=== PATIENT | female | born 1965 | race Caucasian/White ===

== ENCOUNTER → 2021-09-10 | Outpatient (CLI) | payer OTHER, SELFPAY ==
--- NOTE | 2021-09-10 | ASPIG_PTH ---
PATIENT: DC TOLLIVER LOC: [facility][id number] AGE/SX: 56/F ROOM: RE09/10/[address]: Dr. Devang Harman MD : 1965 BED: DIS: 09/10/2021 SPEC #: [id number] RECD: 09/10/21 16:42 STATUS: TOLU BLAYNE #: [id number] CHARLETTE: 09/10/21 00:[address]: Devang Harman DEPT: CYTOLOGY RECD BY: Anderson Davenport ENTERED: 09/13/21 06:42 SP TYPE: ASP OUT OTHR DR: No Primary Care Phys Tissues: A - Thyroid gland, NOS B - Thyroid gland, NOS Procedures: FNA Specimen Adequacy Special Stain Group II Surgery Specimen Level IV Cytology Other HEADER OPERATION: Right thyroid, fine needle aspiration PRE-OP DIAGNOSIS: Uninodular goiter TISSUE SUBMITTED: A ? Right thyroid nodule fluid, B ? Right thyroid nodule x12 slides DIAGNOSIS CYTOLOGY A. Right thyroid nodule fluid, fine needle aspiration (cytospin and cell block): Negative for malignant cells. See comment. B. Right thyroid nodule, fine needle aspiration (smears): Consistent with benign follicular/colloid nodule with cystic changes (Concord category II). Adequate for evaluation. See comment. ELENITA:ernestina 09/14/2021 COMMENT A. The specimen shows a few clusters of benign follicular cells and macrophages. Clinical correlation and appropriate follow up are necessary. CYTOLOGY STUDY Slides are reviewed. CYTOLOGY GROSS A - Received is 25 ml of light beige cloudy fluid labeled with the patient's name and and designated per the requisition as right thyroid. Submitted for cytology preparation including cell block. B - Received are 12 smears labeled with the patient's name and designated per the requisition as right thyroid. Submitted for staining. / ernestina 09/13/2021 TC:5 CPT: 55396, 34613 x2
== END | disposition home or self-care (01) ==
PROVIDERS: Visit Provider Surgery
DX: E04.1 Nontoxic single thyroid nodule (principal)
CPT/HCPCS: 88161; 88172; 88305; 88313

== ENCOUNTER 2022-06-24 01:23 | Emergency (ER) | payer OTHER, SELFPAY ==
[2022-06-24 01:24] VITALS: BP 175/104; PULSE 124; RESP 18; TEMP 36.7; O2SAT 99; BMI 32.1
--- NOTE | 2022-06-24 01:51 | RAD_ITS ---
STUDY: X-RAY CHEST REASON FOR EXAM: Female, 57 years old. Chest pain. TECHNIQUE: PA and lateral COMPARISON: None. FINDINGS: No apparent pneumothorax, pneumonia, pleural effusion, or edema. Cardiac silhouette, umer and mediastinal contours are within normal limits. No acute osseous abnormality. No evidence of free air under the diaphragm. RAD/Chest PA and Lateral IMPRESSION: Negative chest radiograph. Electronically Signed: Shashank Rivas MD at 2:39 EDT ,
[2022-06-24] MEDS: Aspirin 325 MG Tablet PO (01:58)
[2022-06-24 02:05] LABS: Absolute Lymphocyte Count 3.88 X10^3/uL (0.83-4.51); Absolute Neutrophil Count 4.8 X10^3/uL (2.0-7.7); Basophil# 0.13 X10^3/uL; Basophil% 1.3 % (0-1); Eosinophil# 0.24 X10^3/uL; Eosinophils% 2.4 % (0-5); Hematocrit 42.8 % (37-47); Hemoglobin 14.2 g/dL (12.0-15.0); Lymphocyte # 3.88 X10^3/ul (0.83-4.51); Mean Corp Hgb Conc 33.2 g/dL (32-36); Mean Corpuscular Hgb 29.7 pg (27.0-32.0); Mean Corpuscular Volume 89.5 fL (81-99); Mean Platelet Vol. 10.3 fl (6.2-12.0); NRBC Flagged by Analyzer 0 % (0-5); Neutrophil # 4.84 X10^3/uL (2.7-7.7); Neutrophil % 48.7 % (47-70); Platelet Count 357 K/mm3 (150-450); RBC Distribution Width SD 42.1 fl (35.1-43.9); Red Blood Count 4.78 M/mm3 (4.2-5.4)
[2022-06-24 02:23] LABS: D-Dimer Quantitative (DVT/PE) 0.68 FEU/ug/m (0.27-0.49)
[2022-06-24 02:29] LABS: Anion Gap 5 (5-15); BUN 21 mg/dL (7-18); BUN/Creat Ratio 20.4 RATIO (10-20); Calcium,Total 9.4 mg/dL (8.5-10.1); Chloride 109 mmol/L (98-107); Creatinine, Serum 1.03 mg/dL (0.55-1.02); EST Glomerular Filtration Rate 59 mL/min (>60); Est Glom Filt Rate - Afr Amer 71 mL/min (>60); Estimated Creatinine Clearance 55.53 ml/min; Glucose 79 mg/dL (74-106); Magnesium 2.1 mg/dL (1.6-2.6); Potassium 3.8 mmol/L (3.5-5.1); Sodium Level 140 mmol/L (136-145); Thyroid Stim Hormone (TSH) 8.26 uIU/mL (0.358-3.74); Troponin-I HS 6 pg/mL (3.0-54.0)
--- NOTE | 2022-06-24 02:39 | CT_ITS ---
STUDY: CTA CHEST REASON FOR EXAM: Female, 57 years old. Chest pain. Elevated d-dimer. RADIATION DOSAGE (If Supplied By Facility): CTDIvol = ( 12.18 ) mGy, DLP = ( 473.19 ) mGycm TECHNIQUE: The examination was performed with the intravenous administration of IV 100mL Isovue-370. Post-processing of the angiographic images was performed, with MIP reconstructed images. Individualized dose optimization techniques were used for this CT. COMPARISON: Chest radiographs same date. FINDINGS: Pulmonary arteries: No pulmonary embolus. Normal caliber. Heart: Normal size. No coronary artery calcifications, patency not well evaluated because of cardiac motion. Aorta: No thoracic aortic dissection or aneurysm. Lungs, pleura: No pneumonia, edema, or acute abnormality in the lungs. No pleural effusion. No pneumothorax. Mediastinum: No adenopathy or mass or hematoma. Osseous:No acute osseous abnormality. Chest wall: No concerning findings. Upper abdomen: No acute findings. CT/CTA Chest W/WO Contrast IMPRESSION: Normal CTA chest. Electronically Signed: Shashank Rivas MD at 4:00 EDT Reading Location ID and State: [facility] / [place] Tel , Service support ,
[2022-06-24 03:27] VITALS: BP 130/81; PULSE 81; RESP 18; O2SAT 95
[2022-06-24] MEDS: 0.9% Normal Saline 1,000 ML 999 ML IV (03:27)
--- NOTE | 2022-06-24 03:46 | EDS_ITS ---
HPI History of Present Illness Chief Complaint: Chest Pain Narrative Narrative: Patient is a 57-year-old female with past medical history of hypertension and hyperlipidemia who states she has been under a great deal of stress recently. She states she was able to go to sleep tonight but then awoke with some midsternal chest discomfort. She states there was no nausea vomiting diaphoresis or shortness of breath. She states that she was concerned this could be cardiac because of the sudden onset and location of the pain with this comes in for evaluation. Patient denies any recent travel surgery or history of DVT/PE. She denies any recent trauma. She denies any previous issues of cardiac disease. She also reports that there was no palpitations associated with the pain. She reports that upon arrival to the ER pain has spontaneously resolved PFSH PFSH Medical History no medical history Allergy/AdvReac Type Severity Reaction Status Date / Time erythromycin base Allergy Rash Verified 06/24/22 01:27 Penicillins Allergy Rash Verified 06/24/22 01:27 tetracycline Allergy Rash Verified 06/24/22 01:27 Social History Smoking Status: Never smoker [facility] [place] ED Constitutional Constitutional ED: Denies chills or fever(s) ENT ENT ED: Denies sore throat Cardiovascular Cardiovascular: Reports chest pain; Denies palpitations or racing heartbeat Respiratory/Chest Respiratory/Chest: Denies cough or dyspnea Gastrointestinal Gastrointestinal: Denies abdominal pain, diarrhea, nausea or vomiting Genitourinary Genitourinary ED: Denies dysuria Musculoskeletal Musculoskeletal: Denies back pain or myalgias Integumentary Denies rash Neurologic Neurologic: Denies headache(s) Psychiatric Psychiatric: Reports anxiety; Denies suicidal ideation or suicidal thoughts Hematologic/Lymphatic Hematologic/Lymphatic: Denies easy bleeding or easy bruising EXAM Physical Exam Const Vital Signs: 06/24/22 01:24 06/24/22 03:27 Temperature 98.0 F Temperature Source Temporal Pulse Rate 124 H 81 Respiratory Rate 18 18 Blood Pressure 175/104 H 130/81 H Blood Pressure Mean 127 97 Pulse Ox 99 95 Oxygen Delivery Method Room Air Room Air Positive well nourished, well developed and obese General Appearance ED: well developed Nutritional Appearance: obese HEENT Reports moist mucous membranes Eyes PERRL and EOMs intact bilaterally Neck supple and no JVD Chest Wall palpation of chest normal Resp normal respiratory effort and clear to auscultation bilaterally Cardio regular rhythm Rate: tachycardic and other Other Details: Slightly tachycardic rate with regular rhythm. Radial pulses are plus 2 out of 4 bilaterally are equal and symmetric. Carotid pulses equal and symmetric as well GI normal to inspection, nondistended, normoactive bowel sounds, non-tender, non- distended and no masses GI Narrative: No voluntary guarding or rigidity no pulsatile mass Auscultation: normoactive bowel sounds Palpation: soft Extremity normal to inspection Extremity Narrative: No asymmetric edema no pitting edema negative Homans' sign bilaterally Neuro oriented x3 and CN's II-XII intact bilaterally Sensorium / Orientation: alert Psych Psych Narrative: Patient has a nervous/anxious affect Skin no rashes or lesions noted MDM MDM MDM Narrative Medical decision making narrative: Patient presented to the ER mildly tachycardic and hypertensive but had spontaneous resolution of her chest pain. Patient's presentation for chest pain is atypical for cardiovascular disease and her risk factors are minimal and the fact that she has only hypertension and hyperlipidemia. However based on her tachycardia and hypertension I did elect to perform a basic cardiac work-up looking for endorgan damage or possible DVT/PE. The patient's initial troponin is normal at 6 and delta showed no variation going against acute coronary disease. The D-dimer was slightly elevated at 0.68 and therefore a CTA was added. CTA revealed no PE lung pathology or dissection. On reevaluation patient's had spontaneous improvement of her blood pressure and heart. Her chest discomfort is still resolved. Therefore at this time his CTA reveals no PE or dissection or lung pathology such as pneumonia or pneumothorax and blood work shows no changes to suggest endorgan damage or acute coronary syndrome I do not feel she needs to be kept in the hospital for further evaluation and she can follow-up on an outpatient basis History & Record Review Discussion w/independent historian: Patient and Family Lab Data Attestation: I reviewed the patient's lab results. Labs: Laboratory Results - last 24 hr 06/24/22 06/24/22 06/24/22 01:30 01:30 01:30 WBC 10.0 RBC 4.78 Hgb 14.2 Hct 42.8 MCV 89.5 MCH 29.7 MCHC 33.2 RDW Std Deviation 42.1 RDW Coeff of Leona 13.0 Plt Count 357 MPV 10.3 Immature Gran % (Auto) 0.600 Neut % (Auto) 48.7 Lymph % (Auto) 39.0 Catahoula % (Auto) 8.0 Eos % (Auto) 2.4 Baso % (Auto) 1.3 H Absolute Neuts (auto) 4.8 Absolute Lymphs (auto) 3.88 Nucleated RBC % 0 D-Dimer Quant (PE/DVT) 0.68 H* Sodium 140 Potassium 3.8 Chloride 109 H Carbon Dioxide 26.0 Anion Gap 5 BUN 21 H Creatinine 1.03 H Estim Creat Clear Calc 55.53 Est GFR (MDRD) Af Amer 71 Est GFR (MDRD) Non-Af 59 L BUN/Creatinine Ratio 20.4 H Glucose 79 Calcium 9.4 Magnesium 2.1 Troponin I High Sens 6 TSH 8.26 H 06/24/22 01:30 WBC RBC Hgb Hct MCV MCH MCHC RDW Std Deviation RDW Coeff of Leona Plt Count MPV Immature Gran % (Auto) Neut % (Auto) Lymph % (Auto) Catahoula % (Auto) Eos % (Auto) Baso % (Auto) Absolute Neuts (auto) Absolute Lymphs (auto) Nucleated RBC % D-Dimer Quant (PE/DVT) Sodium Potassium Chloride Carbon Dioxide Anion Gap BUN Creatinine Estim Creat Clear Calc Est GFR (MDRD) Af Amer Est GFR (MDRD) Non-Af BUN/Creatinine Ratio Glucose Calcium Magnesium Troponin I High Sens 5 TSH Radiography Diagnostic Testing: Clinical Impression(s) from Imaging Studies Chest X-Ray 06/24/22 01:51 IMPRESSION: Negative chest radiograph. Electronically Signed: Shashank Rivas MD at 2:39 EDT Reading Location ID and State: [address] [place] [address] Tel , Service support , Chest CTA 06/24/22 02:39 IMPRESSION: Normal CTA chest. Electronically Signed: Shashank Rivas MD at 4:00 EDT Reading Location ID and State: [address] [place] [address] Tel , Service support , Chest x-ray as interpreted by the emergency medicine physician reveals no acute infiltrate pneumothorax or pleural effusion Discharge Plan Triage Chief Complaint: Chest Pain ED Provider: Andrew Elias Dx/Rx/DC Orders Clinical Impression: Accelerated hypertension, Acute nonspecific chest pain with low risk of coronary artery disease Instructions: ED Chest Pain, Uncertain Cause, ED Hypertension, Established Primary Care Provider: Frances Ivey Referrals: Frances Ivey, LYNETTE [Primary Care Provider] - Activity Restrictions/Additional Instructions: Your work-up today shows no signs of cardiac damage from your EKG or blood work. There is no signs of kidney damage from your hypertension. Your CAT scan reveals no blood clot. Continue all of your medications as previously directed by your family doctor and return to the ER should you have any further concerns. Your blood work did show that your TSH value was elevated which could indicate hypothyroidism and therefore follow-up with your family doctor for further testing regarding this abnormality found today. Disposition Disposition: Home, Self Care
[2022-06-24 04:10] LABS: Troponin-I HS 5 pg/mL (3.0-54.0)
[2022-06-24 04:20] VITALS: BP 147/60; PULSE 85; RESP 16; O2SAT 97
== END 2022-06-24 04:21 | disposition home or self-care (01) ==
PROVIDERS: Emergency Provider Emergency Medicine; PCP Physician Assistant; Visit Provider Emergency Medicine
DX: R07.9 Chest pain, unspecified (principal); I10 Essential (primary) hypertension; E66.9 Obesity, unspecified; Z68.32 Body mass index [BMI] 32.0-32.9, adult; Z79.899 Other long term (current) drug therapy
CPT/HCPCS: 71046; 71275; 80048; 83735; 84443; 84484; 85025; 85379; 93005; 96360; 99283; J7030; Q9967

== ENCOUNTER → 2022-08-24 | Outpatient (CLI) | payer OTHER, SELFPAY ==
--- NOTE | 2022-08-24 12:07 | NEURO ---
NCS and/or EMG Patient Report Ordering Doctor: Frances Ivey DATE OF SERVICE: 08/24/22 Sylvia presents for electrodiagnostic testing of the right upper limb. She reports progressively worsening numbness and tingling in the right hand. Electrodiagnostic findings: Right median motor nerve demonstrates prolonged distal latency with normal amplitude and reduced conduction. Normal right ulnar motor response, including conduction across the elbow. Normal right median and ulnar F-waves. Right median sensory latency at the wrist is borderline prolonged. Needle EMG was performed in the right upper limb. All muscles tested in the right upper limb, as well as the right cervical paraspinals. showed no evidence of denervation with normal motor unit action potentials. Electrodiagnostic assessment: This is an abnormal study in the right upper limb. 1. Electrodiagnostic findings demonstrate right-sided median mononeuropathy. This is consistent with a mild to moderate right carpal tunnel syndrome. 2 No electrodiagnostic evidence is noted for cervical radiculopathy. Multi Select Codes Neurology Neurology Interp Codes: 42176-06 Musc test done w/n test comp (interp) and 88732-18 Nrv cndj tst 5-6 studies (interp)
== END | disposition home or self-care (01) ==
PROVIDERS: PCP Physician Assistant; Referring Provider Physician Assistant; Visit Provider Physician Assistant
DX: R20.0 Anesthesia of skin (principal); R20.2 Paresthesia of skin; R29.898 Other symptoms and signs involving the musculoskeletal system; M25.531 Pain in right wrist
CPT/HCPCS: 95886; 95909